=== PATIENT | male | born 1960 | race Caucasian/White ===

== ENCOUNTER 2021-11-12 08:04 | Day surgery (SDC) | payer OTHER ==
[~2021-11-12 08:04] MED LIST: Lactated Ringers 1,000 ML IV SCH; Propofol 200 MG/20 ML SDV ONE; fentaNYL 100 MCG/2 ML SDV ONE
[2021-11-12] MEDS ORDERED: Ketamine 500 mg/10 ML MDV ONE (08:33)
[2021-11-12] MEDS ORDERED: propofoL 100 ML ONE (08:33)
[2021-11-12] MEDS ORDERED: fentaNYL 100 MCG/2 ML SDV ONE (09:56)
[2021-11-12] MEDS ORDERED: ePHEDrine 50 MG/ML SDV ONE (12:30)
[2021-11-12] MEDS ORDERED: Lactated Ringers 1,000 ML IV SCH (12:45)
== END 2021-11-12 13:20 | disposition home or self-care (01) ==
LOC: MW.SDS 08:04
PROVIDERS: ATTEND Surgery
DX: Z12.11 Encounter for screening for malignant neoplasm of colon (principal); D12.3 Benign neoplasm of transverse colon; K29.50 Unspecified chronic gastritis without bleeding; K31.7 Polyp of stomach and duodenum; F41.9 Anxiety disorder, unspecified; K21.9 Gastro-esophageal reflux disease without esophagitis; I10 Essential (primary) hypertension; E78.00 Pure hypercholesterolemia, unspecified; K29.00 Acute gastritis without bleeding; K31.89 Other diseases of stomach and duodenum; Z80.0 Family history of malignant neoplasm of digestive organs; Z88.0 Allergy status to penicillin; Z88.2 Allergy status to sulfonamides; Z79.899 Other long term (current) drug therapy; Z98.890 Other specified postprocedural states; Z87.891 Personal history of nicotine dependence
CPT/HCPCS: 43239; 45380; J2704; J3010; J3490; J7120; 00813

== ENCOUNTER 2025-03-16 21:28 | Emergency (ER) | payer BC ==
[2025-03-16 22:19] LABS: BASOPHILS ABSOLUTE AUTO 0.11 K/uL (0.00-0.20); BASOPHILS PERCENT AUTO 1.0 % (0.0-1.0); EOSINOPHILS ABSOLUTE AUTO 0.49 K/uL (0.00-0.45); EOSINOPHILS PERCENT AUTO 4.3 % (0.0-6.0); IMMATURE GRAN ABSOLUTE AUTO 0.04 K/uL (0.00-0.05); IMMATURE GRAN PERCENT AUTO 0.3 % (0.0-0.4); LYMPHOCYTES ABSOLUTE AUTO 4.50 K/uL (1.00-4.80); LYMPHOCYTES PERCENT AUTO 39.3 % (24.0-44.0); MEAN PLATELET VOLUME 10.4 fL (9.4-12.4); MONOCYTES ABSOLUTE AUTO 1.20 K/uL (0.00-0.80); MONOCYTES PERCENT AUTO 10.5 % (0.0-8.0); NEUTROPHILS ABSOLUTE AUTO 5.12 K/uL (1.80-7.70); NEUTROPHILS PERCENT AUTO 44.6 % (41.0-71.0); NRBC ABSOLUTE 0.00 K/uL (0.00-0.02); NRBC PERCENT 0.0 /100WBC (0.0-0.2); PLATELET COUNT,PLT 198 K/uL (150-400); RED BLOOD CELL COUNT 4.70 M/uL (4.52-5.90); WHITE BLOOD CELL COUNT,WBC 11.46 K/uL (3.9-11.3)
[2025-03-16 22:48] LABS: BLOOD UREA NITROGEN,BUN 16.0 mg/dL (7.0-18.0); CARBON DIOXIDE,CO2 30.4 mmol/L (21.0-32.0); CHLORIDE,CL 102.0 mmol/L (98-107); CREATININE 0.9 mg/dL (0.8-1.3); EST CRCL DRUG DOSING (CG) 77.52 mL/min; GLUCOSE RANDOM 105.0 mg/dL (74-106); POTASSIUM,K 4.8 mmol/L (3.5-5.1); SODIUM,NA 138.0 mmol/L (136-148)
[2025-03-16 22:56] LABS: ESTIMATED GFR 95.0 mL/min (>60)
== END 2025-03-16 23:19 | disposition home or self-care (01) ==
LOC: MW.ED 21:28
DX: I10 Essential (primary) hypertension (principal); E78.00 Pure hypercholesterolemia, unspecified; Z88.0 Allergy status to penicillin; Z88.2 Allergy status to sulfonamides; Z79.899 Other long term (current) drug therapy
CPT/HCPCS: 36415; 80048; 84484; 85025; 93005; 99283